=== PATIENT | male | born 1950 | race Caucasian/White ===

== ENCOUNTER → 2017-07-09 | Outpatient (CLI) | payer OTHER, MEDICARE ==
[~2017-07-09] VITALS: Ht 182.9 cm; Wt 80.7 kg
[~2017-07-09] MED LIST: ATENOLOL 50MG T50 M1 PO; ATORVASTATIN CA40 MG PO; EYE VITAMIN-MI1 EACH PO; XARELTO20 MG PO
--- NOTE | ~2017-07-09 | P ---
[facility] [place] [address] PROCEDURE REPORT Name: GAVI CALLAHAN Room #: REG [facility]#: [id number] Admission: 07/09/17 Attend Phys: Damien Sen MD Discharge: Date of : 48 Report #: [id number] THIS REPORT FOR: //name// CC: Triston Sen PREOPERATIVE DIAGNOSIS: Atrial flutter. POSTOPERATIVE DIAGNOSIS: Atrial flutter. PROCEDURES PERFORMED: 1. SVT ablation. 2. 3D mapping. HISTORY: The patient is a 67-year-old male with a history of atrial flutter, here for ablation. ANESTHESIA: The patient underwent MAC anesthesia with no anesthesia-related complications. DESCRIPTION OF PROCEDURE: The patient underwent informed consent. We discussed the details of the procedure. We also discussed the risks, which include but not limited to bleeding, vascular damage, cardiac perforation as well as stroke. I do not see a pneumothorax. The patient understood these risks and was willing to proceed. As such, the patient was brought to the EP laboratory in a fasting and sedated state, prepped and draped in a sterile fashion. I injected 10 mL of lidocaine at the right groin region and obtained access to the right femoral vein times 3. I placed a 9-Cymro and two 7-Cymro locking sheaths into the vessel using the modified Seldinger technique. Next, I paced a Decapolar catheter easily in the coronary sinus and a HALO catheter into the right atrium. At baseline, the patient was in atrial flutter with an atrial cycle length of 250 milliseconds, ventricular cycle length of 500 milliseconds, QRS duration of 90 milliseconds and QT interval of 330 milliseconds. The atrial activation was proximal to distal along the coronary sinus and was clockwise activation along the HALO catheter. Next, I performed atrial pacing from HALO 1, 2. Entrainment was achieved and the post-pacing interval minus tachycardia cycle length was 20 milliseconds. This was easily reproducible. As such, diagnosis of clockwise cavotricuspid isthmus-dependent flutter was made. 3D MAPPING AND ABLATION: I exchanged my 8-Cymro short sheath for a ramp sheath and a [employer] Perkins 8 mm ablation catheter. Next, I created a 3D geometry of the right atrium. Next, ablation was performed at 70 solares and 60 degrees. A continuous drag lesion was performed and when the ablation catheter was at the [facility] [address] [place] [address] PROCEDURE REPORT Name: BASIABernabeGAVI Room #: REG TAS[facility] Wild#: [id number] Admission: 07/09/17 Attend Phys: Damien Sen MD Discharge: Date of : 48 Report #: [id number] posterior isthmus, there was termination of the atrial flutter. I then inspected my line once again and I performed some additional ablation on areas where there were persistent large atrial electrical signals. After I had taken care of everything on my line, I checked for bidirectional block. Pacing from CS 9, 10 resulted in a transisthmus conduction time of 155 milliseconds and pacing from HALO 1, 2 also demonstrated transisthmus conduction time of 155-160 milliseconds. The activation sequence was consistent with bidirectional block. I performed differential pacing from HALO 1, 2 and HALO 3, 4 and these values were consistent with lateral to medial block. POST-ABLATION TESTING: Post-ablation testing, I performed atrial burst pacing and AV block was noted at 340 milliseconds. AV isis ERP was noted at 280 milliseconds at [address] cycle length. I performed aggressive atrial burst pacing down to 250 milliseconds and I could not induce any AFib or atrial flutter. I performed a sinus node recovery time pacing at 500 milliseconds and this was 800 milliseconds. Of note, the patient does have a known history of PVCs, which are right bundle-branch block, transition in V5 and are negative in the inferior leads. We weighted for a period of 30 minutes and retracted and there was persistence of bidirectional block. As such, the procedure was concluded. Catheters and sheaths were pulled. Hemostasis was obtained and the patient awoke neurologically and hemodynamically intact with no complications and no significant bleeding. CONCLUSIONS: 1. Successful ablation of typical atrial flutter with evidence of bidirectional block. 2. Normal SA isis function. 3. Normal AV isis function. 4. Normal His-Purkinje function. 5. No other inducible arrhythmias. 6. PVCs as described above. By: [id number] [id number] Damien Sen MD /nt
[2017-07-09 07:06] VITALS: BP 129/98
[2017-07-09 07:18] LABS: ABSOLUTE NEUTROPHILS 2.1 thou/uL (1.4-8.2); EOSINOPHILS 2.5 % (0.0-3.0); HEMATOCRIT 41.3 % (42.0-52.0); HEMOGLOBIN 14.3 gm/dL (14.0-18.0); LYMPHOCYTES 44.6 % (24.0-44.0); MCH 34.3 pg (26.0-34.0); MCHC 34.5 g/dL (28.0-37.0); MCV 99.6 fL (80.0-100.0); MONOCYTES 10.9 % (1.0-8.0); PLATELET COUNT 152 thou/uL (150-400); RBC 4.15 mil/uL (4.50-6.00); RDW 12.9 % (10.5-14.5); WBC 5.2 thou/uL (4.0-11.0)
[2017-07-09 07:25] LABS: MANUAL DIFF NO
[2017-07-09 07:32] LABS: APTT 26.6 Seconds (24.5-32.8); PROTIME 10.5 Seconds (9.3-11.4)
[2017-07-09 07:47] LABS: CALCIUM 8.9 mg/dL (8.5-10.1); CREATININE 0.8 mg/dL (0.7-1.3); POTASSIUM 4.1 mmol/L (3.5-5.1)
[2017-07-09 07:52] LABS: TOTAL BILIRUBIN 0.5 mg/dL (<0.1-1.0); TOTAL PROTEIN 7.4 g/dL (6.4-8.2)
== END ==
LOC: CATH 06:38
PROVIDERS: Internal Medicine Cardiovascular Disease
DX: I48.92 Unspecified atrial flutter (principal); I25.2 Old myocardial infarction; E78.00 Pure hypercholesterolemia, unspecified; I10 Essential (primary) hypertension; Z87.891 Personal history of nicotine dependence; Z95.1 Presence of aortocoronary bypass graft; E78.4 Other hyperlipidemia; Z79.899 Other long term (current) drug therapy; Z88.8 Allergy status to other drugs, medicaments and biological substances
CPT/HCPCS: 62110; 62900; 70005

== ENCOUNTER → 2019-12-21 | Outpatient (CLI) | payer OTHER, MEDICARE | LOC: SJCVC 10:10 | DX: R00.1 Bradycardia, unspecified (principal); R94.31 Abnormal electrocardiogram [ECG] [EKG]; I25.10 Atherosclerotic heart disease of native coronary artery without angina pectoris; I48.0 Paroxysmal atrial fibrillation; I10 Essential (primary) hypertension; I65.23 Occlusion and stenosis of bilateral carotid arteries; E78.5 Hyperlipidemia, unspecified; E11.9 Type 2 diabetes mellitus without complications; Z87.891 Personal history of nicotine dependence; Z79.899 Other long term (current) drug therapy ==

== ENCOUNTER → 2020-06-29 | Outpatient (CLI) | payer OTHER, MEDICARE | LOC: SJCVC 10:15 | PROVIDERS: ATTEND Internal Medicine | DX: I25.10 Atherosclerotic heart disease of native coronary artery without angina pectoris (principal); R94.31 Abnormal electrocardiogram [ECG] [EKG]; I11.9 Hypertensive heart disease without heart failure; I48.0 Paroxysmal atrial fibrillation; I65.23 Occlusion and stenosis of bilateral carotid arteries; E78.5 Hyperlipidemia, unspecified; E11.9 Type 2 diabetes mellitus without complications; Z79.899 Other long term (current) drug therapy; Z87.891 Personal history of nicotine dependence ==

== ENCOUNTER → 2020-12-31 | Outpatient (CLI) | payer OTHER, MEDICARE | LOC: SJCVC 10:29 | PROVIDERS: ATTEND Internal Medicine | DX: R94.31 Abnormal electrocardiogram [ECG] [EKG] (principal); I11.9 Hypertensive heart disease without heart failure; I25.10 Atherosclerotic heart disease of native coronary artery without angina pectoris; I48.0 Paroxysmal atrial fibrillation; I10 Essential (primary) hypertension; I65.23 Occlusion and stenosis of bilateral carotid arteries; E78.5 Hyperlipidemia, unspecified; E11.51 Type 2 diabetes mellitus with diabetic peripheral angiopathy without gangrene; Z87.891 Personal history of nicotine dependence; Z72.89 Other problems related to lifestyle; Z79.899 Other long term (current) drug therapy ==

== ENCOUNTER → 2021-07-19 | Outpatient (CLI) | payer OTHER, MEDICARE | LOC: SJCVCIMAG 07-01 09:49 | PROVIDERS: ATTEND Internal Medicine | DX: I25.10 Atherosclerotic heart disease of native coronary artery without angina pectoris (principal); I48.0 Paroxysmal atrial fibrillation; I10 Essential (primary) hypertension; I65.23 Occlusion and stenosis of bilateral carotid arteries; E78.5 Hyperlipidemia, unspecified; E11.9 Type 2 diabetes mellitus without complications; Z95.1 Presence of aortocoronary bypass graft; Z79.899 Other long term (current) drug therapy; Z72.89 Other problems related to lifestyle; Z87.891 Personal history of nicotine dependence ==